=== PATIENT | male | born 1975 | race Caucasian/White ===

== ENCOUNTER 2023-10-08 05:04 | Day surgery (SDC) | payer BC ==
[2023-09-26 14:00] VITALS: BMI 27.1
[2023-10-08] MEDS ORDERED: FENTANYL CITRATE/PF 50 MCG/ML VIAL ONE ×4 (11:59→12:18)
[2023-10-08] MEDS ORDERED: MIDAZOLAM HCL 2 MG/2 ML SINGLE DOSE VIAL ONE ×2 (12:00→12:14)
[2023-10-08] MEDS ORDERED: ELECTROLYTE-148 SOLN 1,000 ML IV SCH (12:00)
[2023-10-08] MEDS ORDERED: ceFAZolin SODIUM 1 GM VIAL ONE (12:01)
[2023-10-08] MEDS ORDERED: SODIUM CHLORIDE 0.9% P/F 10 ML VIAL IJ ONE (12:02)
[2023-10-08] MEDS ORDERED: GLYCOPYRROLATE 0.2 MG/1 ML VIAL ONE (12:04)
[2023-10-08] MEDS: ceFAZolin SODIUM 1 GM VIAL IVPB ONE (12:05)
[2023-10-08] MEDS ORDERED: ROCURONIUM BROMIDE 50 MG/5 ML SYRINGE ONE (12:59)
[2023-10-08 13:45] VITALS: BP 126/77; PULSE 53; RESP 19; TEMP 97.7
== END 2023-10-08 13:56 | disposition home or self-care (01) ==
LOC: JASU-SURG 05:04
PROVIDERS: ATTEND Urology
PROC: 0TF4XZZ Fragmentation in Left Kidney Pelvis, External Approach (ICD-10-PCS; principal; 2023-10-08 13:15)
DX: N20.0 Calculus of kidney (principal)

== ENCOUNTER 2023-12-16 16:46 | Emergency (ER) | payer BC ==
[2023-12-16 16:59] VITALS: BP 120/76; PULSE 62; RESP 18; BMI 26.4
[2023-12-16] MEDS ORDERED: ONDANSETRON 4 MG/2 ML VIAL ONE (18:58)
[2023-12-16] MEDS ORDERED: FAMOTIDINE 20 MG/50 ML IVPB 20 MG/50 ML MG IVPB ONE (18:58)
[2023-12-16] MEDS: ONDANSETRON 4 MG/2 ML VIAL IVPB ONE (19:18)
[2023-12-16] MEDS: FAMOTIDINE 20 MG/50 ML IVPB 20 MG in PREMIX 50 IVPB ONE (19:18)
[2023-12-16] MEDS: LACTATED RINGERS SOLUTION 1000 ML INFUS.BAG IV ONE (19:18)
[2023-12-16 19:26] LABS: BASO % 0.5 % (0-2.0); EOS % 1.5 % (0-4.5); HEMATOCRIT 43.9 % (35.4-49); HEMOGLOBIN 14.9 GM/dL (11.7-16.9); LYMPH % 31.9 % (8-40); MCH 28.8 pg (25.7-33.7); MCHC 33.9 g/dl (32.0-35.9); MEAN CELL VOLUME 85.1 fl (80-96); MEAN PLT VOLUME 9.5 fl (7.5-11.1); MONO % 8.4 % (3.8-10.2); NEUT % 57.7 % (42.8-82.8); PLATELET COUNT 250 10^3/uL (134-434); RBC 5.16 M/mm3 (4.00-5.60); RDW 13.8 % (11.9-15.9); WHITE BLOOD COUNT 14.2 K/mm3 (4.0-10.0)
[2023-12-16 19:27] LABS: PH,URINE 7.5 (5.0-8.0); URINE APPEARANCE TURBID; URINE BILIRUBIN NEGATIVE (NEGATIVE); URINE COLOR YELLOW; URINE GLUCOSE (UA) NEGATIVE (NEGATIVE); URINE KETONE 1+ (NEGATIVE); URINE LEUK ESTERASE NEGATIVE (NEGATIVE); URINE NITRITE NEGATIVE (NEGATIVE); URINE PROTEIN NEGATIVE (NEGATIVE)
[2023-12-16 19:48] LABS: CALCIUM 9.7 mg/dL (8.5-10.1)
[2023-12-16 19:49] LABS: ALBUMIN 4.5 g/dl (3.4-5.0); BLOOD UREA NITROGEN 19.7 mg/dL (7-18); MAGNESIUM 2.5 mg/dL (1.8-2.4)
[2023-12-16 19:52] LABS: CREATININE 1.1 mg/dL (0.55-1.3)
[2023-12-16 19:53] LABS: BILIRUBIN,TOTAL 0.8 mg/dL (0.2-1); TOT PROT 7.4 g/dl (6.4-8.2)
[2023-12-16 20:15] VITALS: TEMP 97.6
== END 2023-12-16 22:55 | disposition home or self-care (01) ==
LOC: JER 16:46
PROC: 3E033GC Introduction of Other Therapeutic Substance into Peripheral Vein, Percutaneous Approach (ICD-10-PCS; principal; 2023-12-16)
PROC: 3E033GC Introduction of Other Therapeutic Substance into Peripheral Vein, Percutaneous Approach (ICD-10-PCS; 2023-12-16)
DX: R11.2 Nausea with vomiting, unspecified (principal); R10.13 Epigastric pain; R29.898 Other symptoms and signs involving the musculoskeletal system; R51.9 Headache, unspecified; R20.0 Anesthesia of skin; R20.2 Paresthesia of skin; Z20.822 Contact with and (suspected) exposure to COVID-19
CPT/HCPCS: 0241U-QW; 36415; 70450-TC; 80053; 81003; 83690; 83735; 85025; 93005; 93010; 99285-25

== ENCOUNTER 2024-09-09 21:37 | Emergency (ER) | payer BC ==
[2024-09-09] MEDS ORDERED: MECLIZINE HCL 25 MG TABLET (FP) ONE (22:07)
[2024-09-09] MEDS: MECLIZINE HCL 25 MG TABLET (FP) PO ONE (22:08)
[2024-09-09 22:14] VITALS: BP 121/72; PULSE 85; RESP 18; TEMP 98.2; BMI 27.1
== END 2024-09-09 23:20 | disposition home or self-care (01) ==
LOC: FER 21:37
DX: J32.9 Chronic sinusitis, unspecified (principal); R42 Dizziness and giddiness
CPT/HCPCS: 70450-TC; 99284-25